=== PATIENT | female | born 1960 | race American Indian/Alaskan Native ===

== ENCOUNTER 2018-05-18 11:14 | Emergency (ER) | payer MEDICARE, OTHER ==
[2018-05-18] MEDS ORDERED: NORCO 5/325 PO ONE (12:02)
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
[2018-05-18] MEDS ORDERED: SUBLIMAZE IM ONE (13:13)
[2018-05-18] MEDS ORDERED: ZOFRAN IM ONE (13:13)
[2018-05-18] MEDS ORDERED: SUBLIMAZE ONE (13:17)
[2018-05-18] MEDS ORDERED: ZOFRAN ONE (13:17)
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
--- NOTE | 2018-05-18 13:23 | XRay Report ---
LUMBOSACRAL SPINE, 3 VIEWS: History: Back pain Findings: The vertebral bodies, disk spaces and posterior elements are intact. No compression deformity or malalignment. The SI joints are symmetric and unremarkable. Impression: 1. No evidence for acute injury to the lumbar spine.
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
[2018-05-18 14:04] VITALS: BP 141/84
== END 2018-05-18 14:03 | disposition home or self-care (01) ==
LOC: ED 11:14
DX: S16.1XXA Strain of muscle, fascia and tendon at neck level, initial encounter (principal); S39.012A Strain of muscle, fascia and tendon of lower back, initial encounter; S09.8XXA Other specified injuries of head, initial encounter; I10 Essential (primary) hypertension; F32.9 Major depressive disorder, single episode, unspecified; Z95.818 Presence of other cardiac implants and grafts; V49.9XXA Car occupant (driver) (passenger) injured in unspecified traffic accident, initial encounter; Y93.89 Activity, other specified; Y99.8 Other external cause status; Y92.410 Unspecified street and highway as the place of occurrence of the external cause
CPT/HCPCS: 70450; 72100; 72125; 72170; 96372; 99284; J2405; J3010

== ENCOUNTER 2019-01-12 20:03 | Emergency (ER) | payer MEDICARE ==
--- NOTE | 2019-01-12 20:44 | Emergency Department Report ---
Blank Doc - Documentation Documentation: This is a 58-year-old female that presents with abdominal pain with constipati on. Denies any n/v. This initial assessment/diagnostic orders/clinical plan/treatment(s) is/are subject to change based on patient's health status, clinical progression and re- assessment by fellow clinical providers in the ED. Further treatment and workup at subsequent clinical providers discretion. Patient/guardians urged not to elope from the ED as their condition may be serious if not clinically assessed and managed. Initial orders include: 1- Patient sent to [facility] for further evaluation and treatment 2- labs 3- XR abd
[2019-01-12 21:24] LABS: Basophils # (Auto) 0.1 K/mm3 (0.0-0.1); Basophils % (Auto) 0.6 % (0.0-1.8); Eosinophils # (Auto) 0.2 K/mm3 (0.0-0.4); Eosinophils % (Auto) 1.9 % (0.0-4.3); Hematocrit 41.7 % (30.3-42.9); Hemoglobin 14.1 gm/dl (10.1-14.3); Lymphocytes # (Auto) 3.7 K/mm3 (1.2-5.4); Lymphocytes % (Auto) 45.5 % (13.4-35.0); Mean Corpuscular HGB Conc 34 % (30-34); Mean Corpuscular Volume 88 fl (79-97); Monocytes # (Auto) 0.7 K/mm3 (0.0-0.8); Monocytes % (Auto) 8.7 % (0.0-7.3); Platelet Count 220 K/mm3 (140-440); Red Blood Count 4.73 M/mm3 (3.65-5.03); Red Cell Distribution Width 14.2 % (13.2-15.2)
[2019-01-12 21:34] LABS: Bilirubin,Urine NEG (Negative); Blood,Urine NEG (Negative); Color,Urine Amber (Yellow); Hyaline Casts,Urine 1 /LPF; Mucus,Urine FEW /HPF; Protein,Urine <15 mg/dL mg/dL (Negative)
[2019-01-12 21:39] LABS: Albumin 4.4 g/dL (3.9-5); Calcium 10.7 mg/dL (8.4-10.2)
--- NOTE | 2019-01-12 21:46 | XRay Report ---
PROCEDURE: XR ABD SERIES W CXR 1V TECHNIQUE: Abdominal series complete, including supine and upright AP views of the abdomen and front al chest. HISTORY: abd pain COMPARISONS: None . FINDINGS: Heart: Normal. Left dual-lead pacemaker is present Mediastinum/Vessels: Normal. Lungs/Pleural space: No infiltrate, effusion, or pneumothorax. Bowel gas pattern: There is large volume of stool throughout the colon, compatible constipation. No evidence of bowel obstruction . Calcifications: None . Bony structures: No acute osseous abnormality . Other: No free intraperitoneal air . IMPRESSION: Constipation. This document is electronically signed by Nancy Rodriguez MD., January 12 2019 09:44:20 PM ET
[2019-01-12] MEDS ORDERED: KIONEX PO ONE (21:58)
[2019-01-12] MEDS ORDERED: TORADOL IM ONE (21:58)
--- NOTE | 2019-01-12 22:03 | Emergency Department Report ---
ED Abdominal Pain HPI - General Chief Complaint: Abdominal Pain Stated Complaint: ABD PAIN Time Seen by Provider: 01/12/19 20:43 Source: patient Mode of arrival: Ambulatory Limitations: No Limitations - History of Present Illness Initial Comments: Ms. Salas is a 58 yo female with hx of IBS who presents with abdominal pain and constipation. WHen she strained to defecate, a ripping sensation began throughout abdomen. She is followed by baccarat dealer Dr. Hinkle in [place]. MD Complaint: abdominal pain -: Gradual, days(s) (1), This morning Location: diffuse Radiation: none Severity: moderate Quality: sharp Consistency: constant Improves With: nothing Worsens With: bowel movement Associated Symptoms: constipation - Related Data Previous Rx's Medication Instructions Recorded Last Taken Type Cymbalta 60 mg PO DAILY #15 09/07/15 Unknown Rx Divalproex Sodium ER 500 mg PO BID #60 09/07/15 Unknown Rx Lisinopril/Hydrochlorothiazide 20 mg PO DAILY #30 09/07/15 Unknown Rx RisperDAL 0.5 mg PO BID #15 09/07/15 Unknown Rx clonazePAM 1 mg PO TID #15 09/07/15 Unknown Rx Cyclobenzaprine [Flexeril] 10 mg PO TID PRN #14 tablet 05/18/18 Unknown Rx HYDROcodone/APAP 5-325 [[place] 1 - 2 each PO Q6HR PRN #14 tablet 05/18/18 Unknown Rx 5/325] Ibuprofen [Motrin 800 MG tab] 800 mg PO Q8HR PRN #20 tablet 05/18/18 Unknown Rx Polyethylene Glycol/Elect 4,000 ml PO ONCE #1 bottle 01/13/19 Unknown Rx [Golytely] Allergies Allergy/AdvReac Type Severity Reaction Status Date / Time No Known Allergies Allergy Unverified 09/06/15 19:28 ED Review of Systems ROS: Stated complaint: ABD PAIN Other details as noted in HPI Comment: All other systems reviewed and negative Constitutional: denies: fever, malaise Respiratory: denies: cough Cardiovascular: denies: chest pain ED Past Medical Hx - Past Medical History Previous Medical History?: Yes Hx Hypertension: Yes Hx Psychiatric Treatment: Yes (depression,) Additional medical history: unsure of heart problem that caused her to have pacemaker,cyst on both breast, IBS, Constipation - Surgical History Past Surgical History?: Yes Hx Pacemaker: Yes Additional Surgical History: Hysterectomy, Bilateral ovary removal - Social History Smoking Status: Never Smoker Substance Use Type: None - Medications Home Medications: Home Medications Medication Instructions Recorded Confirmed Last Taken Type Cymbalta 60 mg PO DAILY #15 09/07/15 Unknown Rx Divalproex Sodium ER 500 mg PO BID #60 09/07/15 Unknown Rx Lisinopril/Hydrochlorothiazide 20 mg PO DAILY #30 09/07/15 Unknown Rx RisperDAL 0.5 mg PO BID #15 09/07/15 Unknown Rx clonazePAM 1 mg PO TID #15 09/07/15 Unknown Rx Cyclobenzaprine [Flexeril] 10 mg PO TID PRN #14 tablet 05/18/18 Unknown Rx HYDROcodone/APAP 5-325 [[place] 1 - 2 each PO Q6HR PRN #14 tablet 05/18/18 Unknown Rx 5/325] Ibuprofen [Motrin 800 MG tab] 800 mg PO Q8HR PRN #20 tablet 05/18/18 Unknown Rx Polyethylene Glycol/Elect 4,000 ml PO ONCE #1 bottle 01/13/19 Unknown Rx [Golytely] ED Physical Exam - General Limitations: No Limitations General appearance: alert, in no apparent distress - Head Head exam: Present: atraumatic, normocephalic - Eye Eye exam: Present: normal appearance - ENT ENT exam: Present: mucous membranes moist - Neck Neck exam: Present: normal inspection, full ROM - Respiratory Respiratory exam: Present: normal lung sounds bilaterally. Absent: respiratory distress, wheezes, rales, rhonchi - Cardiovascular Cardiovascular Exam: Present: regular rate, normal rhythm, normal heart sounds. Absent: systolic murmur, diastolic murmur, rubs, gallop - GI/Abdominal GI/Abdominal exam: Present: soft, normal bowel sounds. Absent: distended, tenderness, guarding, rebound - Extremities Exam Extremities exam: Present: normal inspection - Back Exam Back exam: Present: normal inspection - Neurological Exam Neurological exam: Present: alert, oriented X3 - Psychiatric Psychiatric exam: Present: normal affect, normal mood - Skin Skin exam: Present: warm, dry, intact, normal color. Absent: rash ED Course Vital Signs 01/12/19 01/12/19 01/12/19 20:43 22:18 23:00 Temperature 98.1 F 98.3 F Pulse Rate 66 65 Respiratory 18 17 Rate Blood Pressure 113/67 126/68 Blood Pressure 128/82 [Left] O2 Sat by Pulse 98 99 100 Oximetry 01/12/19 23:36 Temperature Pulse Rate Respiratory Rate Blood Pressure 127/73 Blood Pressure [Left] O2 Sat by Pulse 100 Oximetry ED Medical Decision Making - Lab Data Result diagrams: 01/12/19 21:16 01/12/19 21:16 Laboratory Results - last 24 hr 01/12/19 01/12/19 01/12/19 21:00 21:16 21:16 WBC 8.1 RBC 4.73 Hgb 14.1 Hct 41.7 MCV 88 MCH 30 MCHC 34 RDW 14.2 Plt Count 220 Lymph % (Auto) 45.5 H [place] % (Auto) 8.7 H Eos % (Auto) 1.9 Baso % (Auto) 0.6 Lymph # 3.7 [place] # 0.7 Eos # 0.2 Baso # 0.1 Seg Neutrophils % 43.3 Seg Neutrophils # 3.5 Sodium 143 Potassium 3.9 Chloride 106.4 Carbon Dioxide 27 Anion Gap 14 BUN 15 Creatinine 1.2 Estimated GFR 56 BUN/Creatinine Ratio 13 Glucose 80 Calcium 10.7 H Total Bilirubin 0.60 AST 20 ALT 18 Alkaline Phosphatase 100 Total Protein 7.5 Albumin 4.4 Albumin/Globulin Ratio 1.4 Urine Color Maranda Urine Turbidity Slightly-cloudy Urine pH 6.0 Ur Specific [place] 1.018 Urine Protein <15 mg/dl Urine Glucose (UA) Neg Urine Ketones Neg Urine Blood Neg Urine Nitrite Neg Urine Bilirubin Neg Urine Urobilinogen 2.0 Ur Leukocyte Esterase Sm Urine WBC (Auto) 5.0 Urine RBC (Auto) 3.0 U Epithel Cells (Auto) 4.0 Hyaline Casts 1 Urine Mucus Few Urine Yeast (Budding) Few - Radiology Data Radiology results: report reviewed Chest abdomen radiographs: Constipation CT abdomen and pelvis without contrast no acute process no signs of obstruction or acute inflammatory process. - Medical Decision Making Mrs. Salas as history of irritable bowel syndrome with constipation leading to abdominal discomfort without indication of peritonitis or acute inflammatory abdominal process. Given IM Toradol for discomfort, given Kayexalate for constipation Prescription provided for [facility] Critical care attestation.: If time is entered above; I have spent that time in minutes in the direct care of this critically ill patient, excluding procedure time. ED Disposition Clinical Impression: Constipation, Irritable bowel syndrome, Abdominal pain Disposition: DC-01 TO HOME OR SELFCARE Is pt being admited?: No Does the pt Need Aspirin: No Condition: Stable Instructions: Constipation (ED), Acute Abdominal Pain (ED), Irritable Bowel Sy ndrome (ED) Prescriptions: Polyethylene Glycol/Elect [Golytely] 4,000 ml PO ONCE #1 bottle
[2019-01-12 23:37] VITALS: BP 127/73
--- NOTE | 2019-01-13 00:02 | Cat Scan Report ---
PROCEDURE: CT ABDOMEN PELVIS WO CON TECHNIQUE: Computerized axial tomography of the abdomen and pelvis was performed without intravenous contrast. This study is performed without intravascular contrast material and its sensitivity for ab dominal and pelvic pathology, including neoplasms, inflammation, abscess, free fluid, thrombosis, art erial dissection and infarction, is reduced compared with a contrast enhanced study. HISTORY: abdominal pain COMPARISONS: None . FINDINGS: Lower Lung mckenzie: Postsurgical changes are seen in the lower left chest wall laterally. Portions of ribs appear to have been resected. Surgical clips are visualized. There appears to be some parenchym al scarring in the left lower lobe inferiorly laterally. Pacemaker leads visualized in the right side of the heart. Upper Abdomen: Gallbladder is partially contracted otherwise unremarkable. The unenhanced images of the liver are unremarkable. The adrenal glands, the spleen and pancreas are unremarkable. Kidneys, Ureters and Urinary bladder: No abnormalities are seen. Retroperitoneum: Abdominal aorta appears normal. Nonspecific subcentimeter lymph nodes are seen in the retroperitoneum. No pathologically enlarged ly mph nodes are identified. Bowel: No acute or focal abnormalities are seen. No evidence of bowel obstruction, ascites or free i ntraperitoneal gas. The appendix is not visualized. No inflammatory changes are seen in the right low er quadrant that would suggest appendicitis. Reproductive organs: Uterus is surgically absent. No abnormal adnexal masses are seen. Other: No acute bone abnormalities are identified. IMPRESSION: Postsurgical changes left lower chest wall laterally as described. Small amount of parenchymal scarri ng. 3 visualized in the left lower lobe laterally. Prior hysterectomy. Pacemaker leads visualized right side of the heart. No other abnormalities are seen. This document is electronically signed by Jesus Guillermo MD., January 13 2019 12:00:12 AM ET
== END 2019-01-13 00:30 | disposition home or self-care (01) ==
LOC: ED 20:03
DX: K58.1 Irritable bowel syndrome with constipation (principal); I10 Essential (primary) hypertension; Z95.0 Presence of cardiac pacemaker; Z90.710 Acquired absence of both cervix and uterus; Z79.899 Other long term (current) drug therapy
CPT/HCPCS: 36415; 74022; 74176; 80053; 81001; 85025; 96372; 99284; J1885

== ENCOUNTER 2019-01-24 13:46 | Outpatient (CLI) | payer MEDICARE ==
--- NOTE | 2019-01-24 14:37 | XRay Report ---
AP AND LATERAL LUMBOSACRAL SPINE: Breast cancer, low back pain. The vertebral bodies are well mineralized and normal in alignment and vertebral height with well preserved interspace distances. The visualized portions of the posterior elements are normal. No change compared to prior exam of May 18, 2018. IMPRESSION: Normal study. AP AND LATERAL CERVICAL SPINE: Neck pain. The vertebral bodies are well mineralized and normal in alignment and vertebral height with well preserved interspace distances. The visualized portions of the posterior elements are normal. IMPRESSION: Normal study.
== END 2019-01-24 13:47 | disposition home or self-care (01) ==
LOC: SPVIMAG 13:46
PROVIDERS: ATTEND Internal Medicine Hematology & Oncology
DX: M54.5 Low back pain (principal); M54.2 Cervicalgia; C50.912 Malignant neoplasm of unspecified site of left female breast; I10 Essential (primary) hypertension; Z90.710 Acquired absence of both cervix and uterus
CPT/HCPCS: 72040; 72100

== ENCOUNTER 2020-11-26 19:42 | Emergency (ER) | payer MEDICARE ==
[2020-11-26 19:59] VITALS: BP 141/76
--- NOTE | 2020-11-26 20:27 | Event Note ---
ED Screening Note ED Screening Note: two weeks leg pain and swelling no fall or injury right greater than left This initial assessment/diagnostic orders/clinical plan/treatment(s) is/are subject to change based on patients health status, clinical progression and re- assessment by fellow clinical providers in the ED. Further treatment and workup at subsequent clinical providers discretion. Patient/guardian urged not to elope from the ED as their condition may be serious if not clinically assessed and managed. Initial orders include: labs, ua, US
[2020-11-26 21:20] LABS: Bilirubin,Urine NEG (Negative); Blood,Urine SM (Negative); Color,Urine Yellow (Yellow); Mucus,Urine FEW /HPF; Protein,Urine <15 mg/dL mg/dL (Negative); Urobilinogen,Urine < 2.0 mg/dL (<2.0)
[2020-11-26 21:50] LABS: Basophils % (Auto) 0.6 % (0.0-1.8); Eosinophils # (Auto) 0.1 K/mm3 (0.0-0.4); Eosinophils % (Auto) 1.9 % (0.0-4.3); Hematocrit 38.2 % (30.3-42.9); Hemoglobin 12.7 gm/dl (10.1-14.3); Lymphocytes # (Auto) 3.4 K/mm3 (1.2-5.4); Lymphocytes % (Auto) 53.1 % (13.4-35.0); Mean Corpuscular HGB Conc 33 % (30-34); Mean Corpuscular Volume 91 fl (79-97); Monocytes # (Auto) 0.6 K/mm3 (0.0-0.8); Monocytes % (Auto) 8.8 % (0.0-7.3); Platelet Count 162 K/mm3 (140-440); Red Blood Count 4.21 M/mm3 (3.65-5.03); Red Cell Distribution Width 14.6 % (13.2-15.2)
--- NOTE | 2020-11-26 22:14 | Vascular Lab Report ---
DUPLEX DOPPLER LOWER EXTREMITY VEINS, BILATERAL INDICATION / CLINICAL INFORMATION: BLE swelling and pain, R > L. TECHNIQUE: Duplex doppler imaging was performed through the veins of both lower extremities using venous chad gloria and other maneuvers. COMPARISON: None available. FINDINGS: RIGHT COMMON FEMORAL VEIN: Negative. RIGHT FEMORAL VEIN: Negative. RIGHT POPLITEAL VEIN: Negative. RIGHT CALF VEINS: Negative. LEFT COMMON FEMORAL VEIN: Negative. LEFT FEMORAL VEIN: Negative. LEFT POPLITEAL VEIN: Negative. LEFT CALF VEINS: Negative. ADDITIONAL FINDINGS: None. IMPRESSION: 1. No sonographic evidence for DVT in either lower extremity. Signer Name: Ward Doss MD Signed: 11/26/2020 10:09 PM Workstation Name: [employer] [id number]
[2020-11-26 22:32] LABS: BUN/Creatinine Ratio 31; Blood Urea Nitrogen 25 mg/dL (7-17)
[2020-11-26 22:36] LABS: Alanine Aminotransferase 22 units/L (7-56); Albumin 4.1 g/dL (3.9-5); Calcium 9.6 mg/dL (8.4-10.2)
[2020-11-26 22:37] LABS: Hemolysis Index 6
[2020-11-26] MEDS ORDERED: oxyCODONE /ACETAMINOPHEN 5-325MG TAB PO ONE (23:12)
--- NOTE | 2020-11-26 23:28 | Emergency Department Report ---
ED General Adult HPI - General Chief complaint: Extremity Problem,Nontraumatic Stated complaint: BOTH LEG PAIN Time Seen by Provider: 11/26/20 20:26 Source: patient Mode of arrival: Ambulatory Limitations: No Limitations - History of Present Illness Initial comments: 60-year-old -[place] female currently under the care of orthopedist and neurology and primary care for concomitant medical issues. She has a history of unsteady gait and presyncope which is currently being evaluated by neurology she is status post undergoing an MRI of her brain which she states she is they found white matter disease and evaluating her currently for dementia and multiple sclerosis. She has chronic pain to her back causing bilateral pain to her lower extremities the pain has been crampy and achy in her right thigh/groin region primarily when she kneels on the ground and gets to the standing position. She states this is not a new issue has been ongoing for multiple weeks and the orthopedist has recommended surgery however she is waiting to get a second opinion. She normally takes hydrocodone at home and states that when she takes oxycodone it helps to resolve her symptoms her presents emergency department today seeking pain control and prescription for oxycodone. She reports no long car drives or any previous history of any DVT although she did have cancer years ago she reports no active cancers at this present time. Reports no fever, chills, sweats, chest pain, palpitations, diarrhea, vomiting. Ms. Salas reports no swelling of her lower extremities states her primary concern is the pain which is present when she goes from kneeling to standing Location: lower extremity Radiation: non-radiation Severity scale (0 -10): 4 Quality: aching, dull Consistency: constant Improves with: none Worsens with: none Associated Symptoms: denies: confusion, chest pain, cough, diaphoresis, loss of appetite, shortness of breath, syncope - Related Data Previous Rx's Medication Instructions Recorded Last Taken Type Cymbalta 60 mg PO DAILY #15 09/07/15 Unknown Rx Divalproex Sodium ER 500 mg PO BID #60 09/07/15 Unknown Rx Lisinopril/Hydrochlorothiazide 20 mg PO DAILY #30 09/07/15 Unknown Rx RisperDAL 0.5 mg PO BID #15 09/07/15 Unknown Rx clonazePAM 1 mg PO TID #15 09/07/15 Unknown Rx Cyclobenzaprine [Flexeril] 10 mg PO TID PRN #14 tablet 05/18/18 Unknown Rx HYDROcodone/APAP 5-325 [[place] 1 - 2 each PO Q6HR PRN #14 tablet 05/18/18 Unknown Rx 5/325] Ibuprofen [Motrin 800 MG tab] 800 mg PO Q8HR PRN #20 tablet 05/18/18 Unknown Rx Polyethylene Glycol/Elect 4,000 ml PO ONCE #1 bottle 01/13/19 Unknown Rx [Golytely] Nitrofurantoin [place]/M-Cryst 100 mg PO Q12HR #14 capsule 11/26/20 Unknown Rx [Macrobid CAP] Allergies Allergy/AdvReac Type Severity Reaction Status Date / Time lisinopril Allergy Angioedema Verified 11/26/20 19:46 ED Review of Systems ROS: Stated complaint: BOTH LEG PAIN Other details as noted in HPI Comment: All other systems reviewed and negative ED Past Medical Hx - Past Medical History Hx Hypertension: Yes Hx of Cancer: Yes (breast) Hx Psychiatric Treatment: Yes (depression,) Additional medical history: pacemaker,cyst on both breast, IBS, Constipation - Surgical History Hx Pacemaker: Yes Hx Breast Surgery: Yes Additional Surgical History: Hysterectomy, Bilateral ovary removal - Social History Smoking Status: Never Smoker Substance Use Type: None - Medications Home Medications: Home Medications Medication Instructions Recorded Confirmed Last Taken Type Cymbalta 60 mg PO DAILY #15 09/07/15 Unknown Rx Divalproex Sodium ER 500 mg PO BID #60 09/07/15 Unknown Rx Lisinopril/Hydrochlorothiazide 20 mg PO DAILY #30 09/07/15 Unknown Rx RisperDAL 0.5 mg PO BID #15 09/07/15 Unknown Rx clonazePAM 1 mg PO TID #15 09/07/15 Unknown Rx Cyclobenzaprine [Flexeril] 10 mg PO TID PRN #14 tablet 05/18/18 Unknown Rx HYDROcodone/APAP 5-325 [[place] 1 - 2 each PO Q6HR PRN #14 tablet 05/18/18 Unknown Rx 5/325] Ibuprofen [Motrin 800 MG tab] 800 mg PO Q8HR PRN #20 tablet 05/18/18 Unknown Rx Polyethylene Glycol/Elect 4,000 ml PO ONCE #1 bottle 01/13/19 Unknown Rx [Golytely] Nitrofurantoin [place]/M-Cryst 100 mg PO Q12HR #14 capsule 11/26/20 Unknown Rx [Macrobid CAP] ED Physical Exam - General Limitations: No Limitations General appearance: alert, in no apparent distress - Head Head exam: Present: atraumatic, normocephalic - Eye Eye exam: Present: normal appearance - ENT ENT exam: Present: mucous membranes moist - Neck Neck exam: Present: normal inspection - Respiratory Respiratory exam: Present: normal lung sounds bilaterally. Absent: respiratory distress - Cardiovascular Cardiovascular Exam: Present: regular rate, normal rhythm. Absent: systolic murmur, diastolic murmur, rubs, gallop - GI/Abdominal GI/Abdominal exam: Present: soft, normal bowel sounds - Extremities Exam Extremities exam: Present: normal inspection, tenderness, normal capillary refill, other (General pain with palpation of her thighs and lower extremities. Pulses 2+ no popliteal masses noted.). Absent: pedal edema, calf tenderness - Back Exam Back exam: Present: normal inspection. Absent: CVA tenderness (R), CVA tenderness (L) - Neurological Exam Neurological exam: Present: alert, oriented X3, CN II-XII intact - Psychiatric Psychiatric exam: Present: normal affect, normal mood - Skin Skin exam: Present: warm, dry, intact, normal color. Absent: rash ED Course Vital Signs 11/26/20 19:46 Temperature 98.9 F Pulse Rate 65 Respiratory 18 Rate Blood Pressure 141/76 O2 Sat by Pulse 95 Oximetry ED Medical Decision Making - Lab Data Result diagrams: 11/26/20 21:37 11/26/20 21:37 Lab Results 11/26/20 11/26/20 11/26/20 Range/Units 21:37 21:37 Unknown WBC 6.3 (4.5-11.0) K/mm3 RBC 4.21 (3.65-5.03) M/mm3 Hgb 12.7 (10.1-14.3) gm/dl Hct 38.2 (30.3-42.9) % MCV 91 (79-97) fl MCH 30 (28-32) pg MCHC 33 (30-34) % RDW 14.6 (13.2-15.2) % Plt Count 162 (140-440) K/mm3 Lymph % (Auto) 53.1 H (13.4-35.0) % [place] % (Auto) 8.8 H (0.0-7.3) % Eos % (Auto) 1.9 (0.0-4.3) % Baso % (Auto) 0.6 (0.0-1.8) % Lymph # (Auto) 3.4 (1.2-5.4) K/mm3 [place] # (Auto) 0.6 (0.0-0.8) K/mm3 Eos # (Auto) 0.1 (0.0-0.4) K/mm3 Baso # (Auto) 0.0 (0.0-0.1) K/mm3 Seg Neutrophils % 35.6 L (40.0-70.0) % Seg Neutrophils # 2.2 (1.8-7.7) K/mm3 Sodium 143 (137-145) mmol/L Potassium 4.1 (3.6-5.0) mmol/L Chloride 105.6 (98-107) mmol/L Carbon Dioxide 23 (22-30) mmol/L Anion Gap 19 mmol/L BUN 25 H (7-17) mg/dL Creatinine 0.8 (0.6-1.2) mg/dL Estimated GFR > 60 ml/min BUN/Creatinine Ratio 31 % Glucose 88 (65-100) mg/dL Calcium 9.6 (8.4-10.2) mg/dL Magnesium 2.20 (1.7-2.3) mg/dL Total Bilirubin 6.70 H (0.1-1.2) mg/dL AST 21 (5-40) units/L ALT 22 (7-56) units/L Alkaline Phosphatase 138 H (35-129) units/L Total Creatine Kinase 194 H (30-135) units/L NT-Pro-B Natriuret Pep 253.4 (0-900) pg/mL Total Protein 6.7 (6.3-8.2) g/dL Albumin 4.1 (3.9-5) g/dL Albumin/Globulin Ratio 1.6 % Urine Color Yellow (Yellow) Urine Turbidity Clear (Clear) Urine pH 5.0 (5.0-7.0) Ur Specific [place] 1.017 (1.003-1.030) Urine Protein <15 mg/dl (Negative) mg/dL Urine Glucose (UA) Neg (Negative) mg/dL Urine Ketones Neg (Negative) mg/dL Urine Blood Sm (Negative) Urine Nitrite Neg (Negative) Urine Bilirubin Neg (Negative) Urine Urobilinogen < 2.0 (<2.0) mg/dL Ur Leukocyte Esterase Lg (Negative) Urine WBC (Auto) 11.0 H (0.0-6.0) /HPF Urine RBC (Auto) 7.0 (0.0-6.0) /HPF U Epithel Cells (Auto) 3.0 (0-13.0) /HPF Urine Mucus Few /HPF - Radiology Data Radiology results: report reviewed [address] [place] [id number] Vascular Lab Report Signed Patient: JENNIFFER SALAS MR#: [id number] : 1960 Acct:[id number] Age/Sex: 60 / F ADM Date: 11/26/20 Loc: ED Attending Dr: Ordering Physician: KYLE POPE Date of Service: 11/26/20 Procedure(s): VL venous duplex LE BILAT Accession Number(s): [id number] cc: KYLE POPE DUPLEX DOPPLER LOWER EXTREMITY VEINS, BILATERAL INDICATION / CLINICAL INFORMATION: BLE swelling and pain, R > L. TECHNIQUE: Duplex doppler imaging was performed through the veins of both lower extremities using venous compression and other maneuvers. COMPARISON: None available. FINDINGS: RIGHT COMMON FEMORAL VEIN: Negative. RIGHT FEMORAL VEIN: Negative. RIGHT POPLITEAL VEIN: Negative. RIGHT CALF VEINS: Negative. LEFT COMMON FEMORAL VEIN: Negative. LEFT FEMORAL VEIN: Negative. LEFT POPLITEAL VEIN: Negative. LEFT CALF VEINS: Negative. ADDITIONAL FINDINGS: None. IMPRESSION: 1. No sonographic evidence for DVT in either lower extremity. Signer Name: Graciela Velazquez MD Signed: 11/26/2020 10:09 PM Workstation Name: [id number] Transcribed By: Dictated By: GRACIELA VELAZQUEZ Electronically Authenticated By: GRACIELA VELAZQUEZ Signed Date/Time: 11/26/202208 DD/ 07 TD/TT: - Medical Decision Making 60-year-old -[place] female with past medical history of white matter brain disease possible dementia/possible evolving multiple sclerosis currently under the care of her neurologist for definitive treatment did have nerve conduction study on December 04. She is a chronic pain patient on hydro codon-and seeks to have prescription for oxycodone. She is concerned about dementia and is requesting resources about the case. She states that her orthopedist and her neurologist have already advised her she does not need to live alone and is currently talking with she and her son about a living status change due to her current diagnosis. Incidentally lab labs have uncover what looks like an evolving urinary tract infection for this reason we will treat him for 7 days with Macrobid and have you to have your urine reevaluated your primary care provider on your currently scheduled follow-up Critical care attestation.: If time is entered above; I have spent that time in minutes in the direct care of this critically ill patient, excluding procedure time. ED Disposition Clinical Impression: Chronic lower limb pain, UTI (urinary tract infection) Disposition: TO HOME OR SELFCARE Is pt being admited?: No Does the pt Need Aspirin: No Condition: Stable Instructions: Chronic Pain, Adult, Pain Medicine Instructions, [id number], How to Use Cold Therapy Additional Instructions: Please keep the appointment with your neurologist and orthopedist for definitive treatment of your current issues which we discussed briefly today. Prescriptions: Nitrofurantoin [place]/M-Cryst [Macrobid CAP] 100 mg PO Q12HR #14 capsule Referrals: PRIMARY CARE, [Primary Care Provider] - 3-5 Days
== END 2020-11-26 23:45 | disposition home or self-care (01) ==
LOC: ED 19:42
DX: N39.0 Urinary tract infection, site not specified (principal); M79.604 Pain in right leg; M79.605 Pain in left leg; G89.29 Other chronic pain; I10 Essential (primary) hypertension; F32.9 Major depressive disorder, single episode, unspecified; Z79.899 Other long term (current) drug therapy; Z88.8 Allergy status to other drugs, medicaments and biological substances; Z90.710 Acquired absence of both cervix and uterus; Z98.890 Other specified postprocedural states
CPT/HCPCS: 36415; 80053; 81001; 82550; 83735; 83880; 85025; 87086; 93970

== ENCOUNTER 2022-03-09 03:04 | Emergency (ER) | payer MEDICARE ==
[2022-03-09] MEDS ORDERED: LORazepam 2 MG/ML VIAL IM ONE (03:10)
--- NOTE | 2022-03-09 05:54 | Emergency Department Report ---
<JIA NGO - Last Filed: 03/09/22 09:02> ED General Adult HPI - General Stated complaint: ANXIETY Time Seen by Provider: 03/09/22 03:43 - Related Data Previous Rx's Medication Instructions Recorded Last Taken Type Cymbalta 60 mg PO DAILY #15 09/07/15 Unknown Rx Divalproex Sodium ER 500 mg PO BID #60 09/07/15 Unknown Rx Lisinopril/Hydrochlorothiazide 20 mg PO DAILY #30 09/07/15 Unknown Rx RisperDAL 0.5 mg PO BID #15 09/07/15 Unknown Rx clonazePAM 1 mg PO TID #15 09/07/15 Unknown Rx Cyclobenzaprine [Flexeril] 10 mg PO TID PRN #14 tablet 05/18/18 Unknown Rx HYDROcodone/APAP 5-325 [[place] 1 - 2 each PO Q6HR PRN #14 tablet 05/18/18 Unknown Rx 5/325] Ibuprofen [Motrin 800 MG tab] 800 mg PO Q8HR PRN #20 tablet 05/18/18 Unknown Rx Polyethylene Glycol/Elect 4,000 ml PO ONCE #1 bottle 01/13/19 Unknown Rx [Golytely] Nitrofurantoin [place]/M-Cryst 100 mg PO Q12HR #14 capsule 11/26/20 Unknown Rx [Macrobid CAP] Allergies Allergy/AdvReac Type Severity Reaction Status Date / Time lisinopril Allergy Angioedema Verified 11/26/20 19:46 ED Past Medical Hx - Medications Home Medications: Home Medications Medication Instructions Recorded Confirmed Last Taken Type Cymbalta 60 mg PO DAILY #15 09/07/15 Unknown Rx Divalproex Sodium ER 500 mg PO BID #60 09/07/15 Unknown Rx Lisinopril/Hydrochlorothiazide 20 mg PO DAILY #30 09/07/15 Unknown Rx RisperDAL 0.5 mg PO BID #15 09/07/15 Unknown Rx clonazePAM 1 mg PO TID #15 09/07/15 Unknown Rx Cyclobenzaprine [Flexeril] 10 mg PO TID PRN #14 tablet 05/18/18 Unknown Rx HYDROcodone/APAP 5-325 [[place] 1 - 2 each PO Q6HR PRN #14 tablet 05/18/18 Unknown Rx 5/325] Ibuprofen [Motrin 800 MG tab] 800 mg PO Q8HR PRN #20 tablet 10/17/18 Unknown Rx Polyethylene Glycol/Elect 4,000 ml PO ONCE #1 bottle 01/13/19 Unknown Rx [Golytely] Nitrofurantoin [place]/M-Cryst 100 mg PO Q12HR #14 capsule 11/26/20 Unknown Rx [Macrobid CAP] ED Disposition Clinical Impression: Anxiety, Shortness of breath Dysphagia Qualifiers: Dysphagia type: unspecified Qualified Code(s): R13.10 - Dysphagia, unspecified Disposition: 01 HOME / SELF CARE / HOMELESS Is pt being admited?: No Does the pt Need Aspirin: No Condition: Stable Instructions: Shortness of Breath, Adult, [id number], Supporting Someone With Anxiety, Dysphagia Eating Plan, Bite Size Food Additional Instructions: Please call your primary care doctor, today, and try to get follow-up with a electronics engineer and a police shift commander, as soon as they are available. Referrals: SHIRIN MONSIVAIS MD [Primary Care Provider] - 3-5 Days FAMILIA LAKHANI MD [Staff Physician] - 3-5 Days JAAY MACK MD [Staff Physician] - 3-5 Days Time of Disposition: 09:06 <AYSE EDDY - Last Filed: 03/12/22 06:13> ED General Adult HPI - General PUI?: No Source: patient Mode of arrival: Ambulatory Limitations: No Limitations - History of Present Illness Initial comments: pt was with her son in the room for being evaluated fro body aches and then suddently developed anxiety attack and dysphagia, vitallys table o2 sat 99 pn RA , history of anxiety and bipolar disorders, no chest pain no sob no weakness -: Sudden, minutes(s) Location: neck Radiation: non-radiation Consistency: constant Improves with: none Worsens with: none Associated Symptoms: denies: denies other symptoms, confusion, chest pain, headaches, loss of appetite, malaise, shortness of breath, syncope ED Review of Systems ROS: Stated complaint: ANXIETY Other details as noted in HPI Constitutional: denies: chills, fever Eyes: denies: eye pain, eye discharge, vision change ENT: denies: ear pain, throat pain Respiratory: denies: cough, shortness of breath, wheezing Cardiovascular: denies: chest pain, palpitations Endocrine: no symptoms reported Gastrointestinal: denies: abdominal pain, nausea, diarrhea Genitourinary: denies: urgency, dysuria, discharge Musculoskeletal: denies: back pain, joint swelling, arthralgia Skin: denies: rash, lesions Neurological: denies: headache, weakness, paresthesias Psychiatric: denies: anxiety, depression Hematological/Lymphatic: denies: easy bleeding, easy bruising ED Past Medical Hx - Past Medical History Hx Hypertension: Yes Hx Psychiatric Treatment: Yes (depression,) Additional medical history: pacemaker,cyst on both breast, IBS, Constipation - Surgical History Hx Pacemaker: Yes Hx Breast Surgery: Yes Additional Surgical History: Hysterectomy, Bilateral ovary removal - Social History Smoking Status: Never Smoker Substance Use Type: None ED Physical Exam - General General appearance: alert, in no apparent distress, other (active intermittent contraction of her neck muscles ) - Head Head exam: Present: atraumatic, normocephalic - Eye Eye exam: Present: normal appearance - ENT ENT exam: Present: mucous membranes moist - Neck Neck exam: Present: normal inspection - Respiratory Respiratory exam: Present: normal lung sounds bilaterally. Absent: respiratory distress - Cardiovascular Cardiovascular Exam: Present: regular rate, normal rhythm. Absent: systolic murmur, diastolic murmur, rubs, gallop - GI/Abdominal GI/Abdominal exam: Present: soft, normal bowel sounds - Extremities Exam Extremities exam: Present: normal inspection - Back Exam Back exam: Present: normal inspection - Neurological Exam Neurological exam: Present: alert, oriented X3 - Psychiatric Psychiatric exam: Present: normal affect, normal mood - Skin Skin exam: Present: warm, dry, intact, normal color. Absent: rash ED Course Vital Signs 03/09/22 03/09/22 03:06 08:12 Temperature 98 F Pulse Rate 83 60 Respiratory 18 18 Rate Blood Pressure 156/88 Blood Pressure 167/89 [Left] O2 Sat by Pulse 100 99 Oximetry ED Medical Decision Making - Radiology Data Radiology results: report reviewed, image reviewed - Medical Decision Making ativan given pt is more relaxed CT scan negative so far wiaitng on report Critical care attestation.: If time is entered above; I have spent that time in minutes in the direct care of this critically ill patient, excluding procedure time. ED Disposition Is pt being admited?: No Does the pt Need Aspirin: No
--- NOTE | 2022-03-09 06:28 | Cat Scan Report ---
EXAMINATION: CT neck wo con HISTORY: diff swallowing TECHNIQUE: CT neck performed without IV contrast. All CT scans at this location are performed using C T dose reduction for ALARA by means of automated exposure control. COMPARISON: None available. FINDINGS: Evaluation of the soft tissues of the neck is limited without intravenous contrast. The nasal cavity, nasopharynx, oropharynx, oral cavity, larynx, and trachea demonstrate no significan t abnormality. The thyroid gland, parotid gland, and submandibular glands appear unremarkable. No soft tissue mass, abscess, or significant lymphadenopathy is identified. The skull base, paranasal sinuses, visualized brain, and visualized orbits appear grossly unremarkabl e. No acute osseous findings. IMPRESSION: No significant abnormality of the soft tissues of the neck, within the limitations of this noncontras t study. Signer Name: Jacobo James MD Signed: 03/09/2022 6:24 AM Workstation Name: [id number]
[2022-03-09 08:13] VITALS: BP 167/89
--- NOTE | 2022-03-09 08:45 | Emergency Department Report ---
Blank Doc - Documentation Documentation: This is a 61-year-old female who presents to the emergency department complain ing of not being able to breathe son was being evaluated. Patient was reevaluated at bedside, and was sleeping very comfortably. Nasal cannula oxygen was turned off, and patient remained having a normal respiratory rate and was saturating at 100%. Patient does not have any stridor, but intermittently gasps which looks like she is having trouble breathing, but this clears up quickly. I explained to her and her son that this is not an emergent situation, and that she should follow-up with her primary care doctor, and possibly a airline lounge receptionist evaluation. Patient will be discharged home, and is stable.
== END 2022-03-09 10:06 | disposition home or self-care (01) ==
LOC: ED 03:04
DX: F41.9 Anxiety disorder, unspecified (principal); R13.10 Dysphagia, unspecified; F32.9 Major depressive disorder, single episode, unspecified; Z90.710 Acquired absence of both cervix and uterus; Z98.890 Other specified postprocedural states; Z79.899 Other long term (current) drug therapy; Z88.8 Allergy status to other drugs, medicaments and biological substances
CPT/HCPCS: 70490; 99283; J2060